=== PATIENT | female | born 1995 | race Caucasian/White ===

== ENCOUNTER → 2020-03-10 11:58 | Outpatient (CLI) | payer MEDICAID | END | disposition home or self-care (01) | LOC: D.US 11:58 | PROVIDERS: ATTEND Obstetrics & Gynecology | DX: M79.604 Pain in right leg (principal) ==

== ENCOUNTER 2020-03-31 10:57 | Outpatient (CLI) | payer MEDICAID ==
[2020-03-31] MEDS ORDERED: GLYBURIDE2.5 MG PO (11:22)
== END 2020-03-31 12:05 | disposition home or self-care (01) ==
LOC: D.LDO 10:57
PROVIDERS: ATTEND Obstetrics & Gynecology
DX: O24.419 Gestational diabetes mellitus in pregnancy, unspecified control (principal)

== ENCOUNTER 2020-04-07 09:52 | Outpatient (CLI) | payer MEDICAID ==
[~2020-04-07 09:52] MED LIST: GLYBURIDE2.5 MG PO
== END 2020-04-07 10:50 | disposition home or self-care (01) ==
LOC: D.LDO 09:52
PROVIDERS: ATTEND Obstetrics & Gynecology
DX: O26.899 Other specified pregnancy related conditions, unspecified trimester (principal)

== ENCOUNTER 2020-04-14 12:08 | Outpatient (CLI) | payer MEDICAID | END 2020-04-14 12:42 | disposition home or self-care (01) | LOC: D.LDO 12:08 | PROVIDERS: ATTEND Obstetrics & Gynecology | DX: O24.419 Gestational diabetes mellitus in pregnancy, unspecified control (principal) ==

== ENCOUNTER 2020-04-21 12:32 | Outpatient (CLI) | payer MEDICAID | END 2020-04-21 13:09 | disposition home or self-care (01) | LOC: D.LDO 12:32 | PROVIDERS: ATTEND Obstetrics & Gynecology | DX: O24.419 Gestational diabetes mellitus in pregnancy, unspecified control (principal) ==